=== PATIENT | female | born 1950 | race Caucasian/White ===

== ENCOUNTER 2020-12-30 07:37 | Outpatient (REF) | payer MEDICARE, OTHER, SELFPAY ==
[2020-12-30 10:15] LABS: MANUAL DIFF FLAG NO
[2020-12-30 10:22] LABS: Basophils Percent Auto 0.5 % (0-2); Eosinophils Absolute Auto 0.2 X10*3/uL (0.0-0.4); Eosinophils Percent Auto 3.4 % (0-4); Hematocrit 40.1 % (37-47); Hemoglobin 13.6 g/dl (12.0-16.0); Imm Gran Abs Auto 0.01 X10*3/uL (0.00-0.03); Imm Gran Pct Auto 0.2 % (0.0-0.4); Lymphocytes Absolute Auto 1.8 X10*3/uL (1.2-4.9); Lymphocytes Percent Auto 30.3 % (20-40); Mean Corpuscular HGB Conc 33.9 g/dl (31.0-35.0); Mean Corpuscular Hemoglobin 30.3 pg (27.0-33.0); Mean Corpuscular Volume 89.3 fL (80-98); Mean Platelet Volume 10.4 fL (9.4-12.3); Monocytes Absolute Auto 0.6 X10*3/uL (0.1-1.2); Monocytes Percent Auto 9.3 % (2-11); Neutrophils Absolute Auto 3.3 X10*3/uL (2.0-8.3); Neutrophils Percent Auto 56.3 % (45-73); Platelet Count 338 X10*3/uL (160-400); Red Blood Count 4.49 X10*6/uL (4.20-5.50); Red Cell Distribution Width 12.5 % (11.0-16.0); White Blood Count 5.9 X10*3/uL (4.8-10.8)
[2020-12-30 10:32] LABS: Alanine Aminotransferase 16 U/L (0-31); Albumin Level 4.1 g/dL (3.5-5.0); Alkaline Phosphatase 57 U/L (39-117); Anion Gap 14 (12-20); Aspartate Amino Transferase 16 U/L (5-31); Bilirubin Total 0.7 mg/dL (0.0-1.0); Blood Urea Nitrogen 10 mg/dL (9-16); Calcium 9.3 mg/dL (8.4-10.2); Carbon Dioxide 23 mmol/L (22-29); Chloride 106 mmol/L (96-108); Cholesterol 210 mg/dL; Estimated Glomerular Filt Rate > 60; Glucose Fasting 97 mg/dL (60-99); HDL Cholesterol 62 mg/dL; LDL Cholesterol Calculated 109 mg/dl; Potassium 4.2 mmol/L (3.3-5.1); Sodium 139 mmol/L (135-145); Total Protein 6.9 g/dL (6.5-8.0); Triglycerides 195 mg/dL
== END 2020-12-30 07:38 | disposition home or self-care (01) ==
LOC: HO.10HDL 07:37
PROVIDERS: PCP Internal Medicine; Visit Provider Internal Medicine
DX: E78.00 Pure hypercholesterolemia, unspecified (principal); L40.9 Psoriasis, unspecified; M85.80 Other specified disorders of bone density and structure, unspecified site; K21.9 Gastro-esophageal reflux disease without esophagitis
CPT/HCPCS: 36415; 80053; 80061; 82306; 85025

== ENCOUNTER 2021-02-17 08:00 | Outpatient (REF) | payer MEDICARE, OTHER, SELFPAY ==
--- NOTE | ~2021-02-17 | MM_ITS ---
EXAMINATION: MM SCREENING DIGITAL BREAST TOMOSYNTHESIS, BILATERAL CLINICAL INFORMATION: Screening. Asymptomatic. The lifetime risk of breast cancer based on the Tyrer-Cuzick Model is 3.4%. COMPARISON: Mammography: December 10, 2019 and studies dating back to September 26, 2014 TECHNIQUE: Digital breast tomosynthesis is performed in both the craniocaudal and mediolateral oblique views along with computer-aided detection (CAD). Synthesized 2D images are generated from the tomosynthesis. FINDINGS: The breasts are heterogeneously dense, which may obscure small masses (ACR BI-RADS breast composition Category c). There are no significant masses, abnormal calcifications, or other abnormalities. There is a stable region of multiple small rounded densities about the superior aspect of the left breast. MM/MM tomosynthesis screening BI IMPRESSION: There are no significant changes from prior study. ASSESSMENT: BI-RADS 1: Negative RECOMMENDATION: Routine annual mammography screening. This patient's information was entered into a reminder system with a target due date for their next mammogram.
== END 2021-02-17 08:01 | disposition home or self-care (01) ==
LOC: HO.MAMMO 08:00
PROVIDERS: PCP Internal Medicine; Visit Provider Internal Medicine
DX: Z12.31 Encounter for screening mammogram for malignant neoplasm of breast (principal)
CPT/HCPCS: 77063; 77067

== ENCOUNTER 2021-06-01 06:31 | Day surgery (SDC) | payer MEDICARE, OTHER, SELFPAY ==
[2021-05-26 10:24] VITALS: BMI 22.4
--- NOTE | 2021-05-29 09:51 | HO.ANESPROP2 ---
Documented by User: Monserrat Regalado NP 05/29/21 09:52 HPI - Anesthesia Eval Consult details Narrative: 70yo F for Colonoscopy [facility] Past Medical History Medical History (Updated 05/26/21 @ 10:24 by Sherry Morgan RN) Arthritis COVID-19 vaccine series completed Elevated cholesterol Family history of anesthesia complication Postoperative nausea Surgical History Surgical History (Updated 05/26/21 @ 10:23 by Sherry Morgan RN) H/O colonoscopy History of Hx of appendectomy Social History Social History Are you a primary career services representative to a significant other at home: No Do you presently have visiting nurse or other home services: No Patient Tobacco Use Status: Former Tobacco user Quit Date: 2007 Tobacco use type: Cigarette Use of substances other than those prescribed or required for medical reasons: Yes Substance Use Type Other:: edible marijuana for sleep-advised to hold pre-op Have you been hit, kicked, punched, or otherwise hurt by someone within the past year? If so, by whom?: No Are you DNR?: No Advance Directives: No Advance Directives Information Provided: Yes Advance Directives on File: No Recently lost weight without trying: No Eating poorly because of decreased appetite: No Nutrition Risks: No Nutritional Risk Poor oral hygiene: No Meds Allergies Allergy/AdvReac Type Severity Reaction Status Date / Time No Known Allergies Allergy Unverified 01/24/20 15:21 Home Medications Medication Instructions Recorded Confirmed Last Taken Type atorvastatin 20 mg tablet 1 tab PO DAILY 05/26/21 05/26/21 Unknown History Exam Exam Date and Time: May 29, 2021 0951 Height,Weight and Vital Signs: Height 5 ft Weight 52.163 kg Assessment and Plan Assessment Anesthesia Assessment: Chart Reviewed Documented by User: Jerel Saenz MD 06/01/21 07:14 [facility] Past Medical History Medical History (Updated 05/26/21 @ 10:24 by Sherry Morgan RN) Arthritis COVID-19 vaccine series completed Elevated cholesterol Family history of anesthesia complication Postoperative nausea Family History Family history of problems with anesthesia: No Surgical History Surgical History (Updated 05/26/21 @ 10:23 by Sherry Morgan RN) H/O colonoscopy History of Hx of appendectomy History of Problems with Anesthesia: No Social History Social History Are you a primary career services representative to a significant other at home: No Do you presently have visiting nurse or other home services: No Patient Tobacco Use Status: Former Tobacco user Quit Date: 2007 Tobacco use type: Cigarette Use of substances other than those prescribed or required for medical reasons: Yes Substance Use Type Other:: edible marijuana for sleep-advised to hold pre-op Have you been hit, kicked, punched, or otherwise hurt by someone within the past year? If so, by whom?: No Are you DNR?: No Advance Directives: No Advance Directives Information Provided: Yes Advance Directives on File: No Recently lost weight without trying: No Eating poorly because of decreased appetite: No Nutrition Risks: No Nutritional Risk Poor oral hygiene: No Meds Allergies Allergy/AdvReac Type Severity Reaction Status Date / Time No Known Allergies Allergy Unverified 01/24/20 15:21 Home Medications Medication Instructions Recorded Confirmed Last Taken Type atorvastatin 20 mg tablet 1 tab PO DAILY 05/26/21 05/26/21 Unknown History Assessment and Plan Assessment Anesthesia Assessment: Anesthesia Plan Discussed and Chart Reviewed Final Anesthetic Review Family History of Problems with Anesthesia: No History of Problems with Anesthesia: No NPO: Yes ASA Class: II Final Preanesthetic Review: No Changes in Pt Med Stat, Meds/Allgs Chart Reviewed and Consent Obtained/Reviewed Patient Risk: Low Procedure Risk: Low Anesthetic Plan Anesthetic Plan: MAC: Disposition: Standard PACU
[2021-06-01 07:21] VITALS: BP 135/74; PULSE 88; RESP 16; TEMP 36.4; O2SAT 97
[2021-06-01] MEDS: Lactated Ringers 1,000 ML 100 ML IVCONT (07:25)
[2021-06-01 08:24] VITALS: BP 107/60; PULSE 87; RESP 14; TEMP 36.1; O2SAT 98
--- NOTE | 2021-06-01 08:25 | P.BOP_ITS ---
Brief Operative Note Date of Service: 06/01/21 Pre-op diagnosis: Screening Post-op diagnosis: other (Diverticulosis) Procedure: Colonoscopy to the cecum and TI Surgeon: Star Mcginnis Anesthesia: MAC Was an Automation Controls Expert used for this Procedure?: No Estimated blood loss (mL): 0 Pathology: none sent Condition: stable Disposition: PACU
--- NOTE | 2021-06-01 08:35 | PC.NURSE ---
dr gould at bedside speaking to patient concerningcolonscopy results
[2021-06-01 08:39] VITALS: BP 118/72; PULSE 87; RESP 18; TEMP 36.6; O2SAT 98
--- NOTE | 2021-06-01 09:05 | OP_ITS ---
SURGEON: Star Mcignnis MD INDICATIONS: The patient presents for evaluation of colorectal cancer screening. Full consent has been obtained from her for this, including risks of bleeding and perforation. PREOPERATIVE DIAGNOSIS: Colorectal cancer screening. POSTOPERATIVE DIAGNOSIS: PROCEDURE PERFORMED: ESTIMATED BLOOD LOSS: COMPLICATIONS: ANESTHESIA: Monitored anesthesia care. ASSISTANTS: SPECIMENS: PROCEDURE: Colonoscopy to cecum and terminal ileum. POSTOPERATIVE DIAGNOSES: Colorectal cancer screening, mild diverticulosis, internal and external hemorrhoids. DESCRIPTION OF PROCEDURE: The patient was placed in the left lateral decubitus position. The digital rectal exam revealed some small external hemorrhoidal tissue. The Olympus video pediatric colonoscope was entered into the rectum and advanced to the cecum with the assistance of abdominal wall pressure. Once in the cecum. I did identify normal-appearing cecal pouch with appendiceal orifice and a normal-appearing ileocecal valve. The terminal ileum was cannulated and appeared normal. The scope was slowly withdrawn assessing all mucosal surfaces carefully. Preparation was excellent. I did not visualize any sign of polyps, colitis, or angiodysplasia. There was a mild amount of sigmoid diverticulosis. In the rectum, scope was retroflexed visualizing small internal hemorrhoids, but no other pathology. The rectal mucosa appeared normal. The scope was straightened and withdrawn from the patient. She tolerated the procedure well and was returned to recovery area in stable condition. IMPRESSION: 1. Small internal and external hemorrhoids. 2. Mild sigmoid diverticulosis. PLAN: Given today's negative exam, negative colonoscopy 10 years ago, and no family history of colorectal cancer; I do not think she will need any further screening colonoscopies given her age of 70 since she would be 80 years old 10 years from now when her next screening colonoscopy would theoretically be due. She will otherwise see me on a p.r.n. basis. MD DORINA Humphries/DIANE / [id number] MTDD
== END 2021-06-01 09:01 | disposition home or self-care (01) ==
PROVIDERS: PCP Internal Medicine; Visit Provider Internal Medicine
PROC: 0DJD8ZZ Inspection of Lower Intestinal Tract, Via Natural or Artificial Opening Endoscopic (ICD-10-PCS; CPT 45378; principal; 2021-06-01 07:30)
DX: Z12.11 Encounter for screening for malignant neoplasm of colon (principal); K57.30 Diverticulosis of large intestine without perforation or abscess without bleeding; K64.8 Other hemorrhoids; K64.4 Residual hemorrhoidal skin tags; E78.5 Hyperlipidemia, unspecified; Z79.899 Other long term (current) drug therapy; Z87.891 Personal history of nicotine dependence
CPT/HCPCS: G0121

== ENCOUNTER 2021-12-25 07:23 | Outpatient (REF) | payer MEDICARE, OTHER, SELFPAY ==
[2021-12-25 10:28] LABS: MANUAL DIFF FLAG NO
[2021-12-25 10:31] LABS: Basophils Percent Auto 0.8 % (0-2); Eosinophils Absolute Auto 0.1 X10*3/uL (0.0-0.4); Eosinophils Percent Auto 2.5 % (0-4); Hematocrit 39.6 % (37.0-47.0); Hemoglobin 13.4 g/dl (12.0-16.0); Imm Gran Abs Auto 0.01 X10*3/uL (0.00-0.03); Imm Gran Pct Auto 0.2 % (0.0-0.4); Lymphocytes Percent Auto 37.7 % (20-40); Mean Corpuscular HGB Conc 33.8 g/dl (31.0-35.0); Mean Corpuscular Hemoglobin 29.9 pg (27.0-33.0); Mean Corpuscular Volume 88.4 fL (80.0-98.0); Mean Platelet Volume 10.3 fL (9.4-12.3); Monocytes Absolute Auto 0.6 X10*3/uL (0.1-1.2); Monocytes Percent Auto 11.3 % (2-11); Neutrophils Absolute Auto 2.5 x10*3/uL (2.0-8.3); Neutrophils Percent Auto 47.5 % (45-73); Platelet Count 341 X10*3/uL (160-400); Red Blood Count 4.48 X10*6/uL (4.20-5.50); Red Cell Distribution Width 12.6 % (11.0-16.0); White Blood Count 5.2 X10*3/uL (4.8-10.8)
[2021-12-25 10:51] LABS: Alanine Aminotransferase 11 U/L (0-31); Albumin Level 4.1 g/dL (3.5-5.0); Alkaline Phosphatase 60 U/L (39-117); Anion Gap 14 (12-20); Aspartate Amino Transferase 15 U/L (5-31); Bilirubin Total 0.6 mg/dL (0.0-1.0); Blood Urea Nitrogen 15 mg/dL (9-16); Carbon Dioxide 24 mmol/L (22-29); Chloride 106 mmol/L (96-108); Cholesterol 200 mg/dL; Estimated Glomerular Filt Rate > 60; Glucose Fasting 100 mg/dL (60-99); HDL Cholesterol 62 mg/dL; LDL Cholesterol Calculated 116 mg/dl; Potassium 4.2 mmol/L (3.3-5.1); Sodium 140 mmol/L (135-145); Total Protein 6.8 g/dL (6.5-8.0); Triglycerides 111 mg/dL
== END 2021-12-25 07:24 | disposition home or self-care (01) ==
LOC: HO.10HDL 07:23
PROVIDERS: Visit Provider Internal Medicine
DX: E78.00 Pure hypercholesterolemia, unspecified (principal); M81.0 Age-related osteoporosis without current pathological fracture
CPT/HCPCS: 36415; 80053; 80061; 85025

== ENCOUNTER 2021-12-28 08:06 | Day surgery (SDC) | payer MEDICARE, OTHER, SELFPAY ==
[2021-12-22 13:21] VITALS: BMI 22.6
--- NOTE | 2021-12-25 08:35 | MHC.SHP ---
Pre-Procedural Eval Section A Date of Service: 12/25/21 The patient is an INPATIENT: No Changes since office visit: No Cold of Flu in the past 2 weeks, No New Medical Problems, No Changes in Medication and No Patient answered all questions The History & Physical has been completed within 30 days and I have reviewed it.: Yes Section B Chief Complaint: cataract Allergies: Allergies Allergy/AdvReac Type Severity Reaction Status Date / Time No Known Allergies Allergy Unverified 01/24/20 15:21 Plan Diagnosis/Plan: Unchanged I have reviewed the history and physical and performed a pertinent physical examination on my patient. No changes have occurred unless specified.
--- NOTE | 2021-12-25 11:50 | HO.ANESPROP2 ---
Documented by User: Monserrat Regalado NP 12/25/21 11:51 HPI - Anesthesia Eval Consult details Narrative: 71yo F for Left Cataract Extraction IOL Insertion PCP cleared No previous cataract on record [facility] Past Medical History Medical History Arthritis COVID-19 vaccine series completed Elevated cholesterol Family history of anesthesia complication Postoperative nausea Family History Family history of problems with anesthesia: No Surgical History Surgical History H/O colonoscopy History of Hx of appendectomy History of Problems with Anesthesia: No Social History Social History Are you a primary childcare attendant to a significant other at home: No Do you presently have visiting nurse or other home services: No Patient Tobacco Use Status: Former Tobacco user Quit Date: 2007 Tobacco use type: Cigarette Use of substances other than those prescribed or required for medical reasons: Yes Substance Use Type Other:: occasional edibles/gummies Have you been hit, kicked, punched, or otherwise hurt by someone within the past year? If so, by whom?: No Are you DNR?: No Advance Directives: No Advance Directives Information Provided: Yes (brochure mailed) Advance Directives on File: No Recently lost weight without trying: No Eating poorly because of decreased appetite: No Nutrition Risks: No Nutritional Risk Poor oral hygiene: No (upper partial) Meds Allergies Allergy/AdvReac Type Severity Reaction Status Date / Time No Known Allergies Allergy Unverified 01/24/20 15:21 Home Medications Medication Instructions Recorded Confirmed Last Taken Type atorvastatin 20 mg tablet 1 tab PO DAILY 05/26/21 12/22/21 Unknown History Exam Exam Date and Time: December 25, 2021 1150 Height,Weight and Vital Signs: Height 5 ft Weight 52.617 kg Assessment and Plan Assessment Anesthesia Assessment: Chart Reviewed Final Anesthetic Review Family History of Problems with Anesthesia: No History of Problems with Anesthesia: No Documented by User: Lisa Karimi MD 12/28/21 09:11 [facility] Past Medical History Medical History Arthritis COVID-19 vaccine series completed Elevated cholesterol Family history of anesthesia complication Postoperative nausea Surgical History Surgical History H/O colonoscopy History of Hx of appendectomy Social History Social History Are you a primary childcare attendant to a significant other at home: No Do you presently have visiting nurse or other home services: No Patient Tobacco Use Status: Former Tobacco user Quit Date: 2007 Tobacco use type: Cigarette Use of substances other than those prescribed or required for medical reasons: Yes Substance Use Type Other:: occasional edibles/gummies Have you been hit, kicked, punched, or otherwise hurt by someone within the past year? If so, by whom?: No Are you DNR?: No Advance Directives: No Advance Directives Information Provided: Yes (brochure mailed) Advance Directives on File: No Recently lost weight without trying: No Eating poorly because of decreased appetite: No Nutrition Risks: No Nutritional Risk Poor oral hygiene: No (upper partial) Meds Allergies Allergy/AdvReac Type Severity Reaction Status Date / Time No Known Allergies Allergy Unverified 01/24/20 15:21 Home Medications Medication Instructions Recorded Confirmed Last Taken Type atorvastatin 20 mg tablet 1 tab PO DAILY 05/26/21 12/22/21 Unknown History Exam Airway Mallampati Class: II TM Dist: >3cm Neck ROM: Full Partial: Upper Loose/Missing/Broken Teeth: Yes and Upper Heart: RRR Lungs: CTA Assessment and Plan Assessment Anesthesia Assessment: Anesthesia Plan Discussed Final Anesthetic Review NPO: Yes ASA Class: II Final Preanesthetic Review: Meds/Allgs Chart Reviewed, Consent Obtained/Reviewed and Anes Risks/Benef Reviewed Patient Risk: Low Procedure Risk: Low Anesthetic Plan Anesthetic Plan: MAC: Disposition: Standard PACU
--- NOTE | 2021-12-25 12:03 | HP_ITS ---
DATE OF SERVICE: 12/28/2021 The patient is a 71-year-old female seen in the office for preop evaluation on December 21 prior to cataract surgery scheduled with Dr. Carlos. The patient feels well. PRESENT MEDICATIONS: Atorvastatin 20 mg a day, [id number] melatonin as needed, calcium and vitamin D daily. REVIEW OF SYSTEMS: No fevers, chills, or sweats. No weight change. No headaches or dizziness. No chest pains or palpitations. No peripheral edema. No shortness of breath. No abdominal pain. Occasional heartburn. No dysuria. Some arthritis in the hands. Sleep and appetite are normal. Some seasonal allergies. No skin complaints. ALLERGIES: NO REPORTED ALLERGIES TO MEDICINES. PAST MEDICAL HISTORY: Significant for elevated cholesterol, hay fever, acid reflux, and psoriasis. FAMILY HISTORY: Mother at 90. Father at 81. One brother from ALS. SOCIAL HISTORY: She is , retired, has 2 children. PHYSICAL EXAMINATION: GENERAL: She is awake and alert, in no distress. VITAL SIGNS: Temperature is 98.6, pulse 72, respirations 12, pressure 124/64, oxygen saturation 99% on room air. She is 4 feet 11 inches and weighs 116 pounds. HEENT: Clear. Some wax in the right canal. HEART: Sounds S1 and S2. Regular rate. LUNGS: Clear. ABDOMEN: Soft, nontender. Positive bowel sounds. No HSM. EXTREMITIES: No clubbing, cyanosis, or edema. 1+ pulses. NEUROLOGIC: Nonfocal. Cranial nerves 2 through 12 are intact. Immunizations are up-to-date. She is medically stable for the proposed procedure. I will be available if there are any questions. MD JULIUS Luna/MODL / [id number]
[2021-12-28 08:40] VITALS: BP 139/84; PULSE 66; RESP 18; TEMP 36.9; O2SAT 96
[2021-12-28 08:42] VITALS: BMI 31.2
[2021-12-28] MEDS: Cyclopentolate 1 % Ophth Sol 2 ML DRPBTL 1 DROP EYE-LEFT ×3 (08:59→09:12)
[2021-12-28] MEDS: Lactated Ringers 500 ML 50 ML IV (08:59)
[2021-12-28] MEDS: Tetracaine HCl/PF 0.5% Oph Sol 4 ML DROPS 1 DROP EYE-LEFT (08:59)
[2021-12-28] MEDS: Phenylephrine HCL 2.5% Oph SoL 2 ML BOTTLE 1 DROP EYE-LEFT ×3 (09:00→09:13)
[2021-12-28] MEDS: Tropicamide 1 % Ophth Sol 3 ML BTL 1 DROP EYE-LEFT ×3 (09:11→09:13)
--- NOTE | 2021-12-28 09:45 | HO.PNOPHT ---
Ophthalmology Procedure Procedure Date of Service: 12/28/21 Ophthalmology Viscoelastic: Healmilly Cohent Dual Pack Pro Ophthalmology Lenses: TECNIS [id number] (22.5) Procedure Notes: PREOPERATIVE DIAGNOSIS: Decreased visual acuity left eye secondary to cataract POSTOPERATIVE DIAGNOSIS: Same PROCEDURE: Left cataract extraction with intraocular lens insertion SURGEON: Fritz Carlos M.D. ANESTHESIA: Topical/MAC ESTIMATED BLOOD LOSS: None COMPLICATIONS: None After obtaining informed consent, the patient was brought to the operation room suite and placed in the supine position. After adequate sedation per anesthesia, topical drops of Tetracaine were given to the left eye. The eye was then prepped and draped in the usual sterile fashion. The operating room microscope was then positioned over the operative eye and a lid speculum placed. A paracentesis was created. Viscoelastic was then instilled into the anterior chamber. A three plane incision was then created temporally, utilizing a 2.85 mm keratome. Capsulotomy forceps were then utilized to create a circular tear capsulotomy. Hydrodissection and hydrodelineation were carried out until adequate mobilization of the nucleus occurred. Phacoemulsification was then utilized to remove the dense central nucleus followed by removal of the cortical material utilizing the automated aspiration irrigation unit. Viscoat elastic was instilled into the posterior capsular bag followed by placement of a posterior chamber intraocular lens without difficulty. The residual Viscoat elastic was then removed utilizing the automated IA machine. The wound was check and found to be watertight. The patient tolerated the procedure well and the lid speculum was removed. Intracameral injection of Vigamox 0.1 mL followed by a subtenon injection of Kenalog-40 0.2 mL were administered. The patient will be seen in the a.m.
[2021-12-28 10:07] VITALS: BP 142/73; PULSE 72; RESP 16; TEMP 36.6; O2SAT 97
== END 2021-12-28 10:16 | disposition home or self-care (01) ==
PROVIDERS: PCP Internal Medicine; Visit Provider Ophthalmology
PROC: (CPT 66985; principal; 2021-12-28 10:10)
DX: H25.12 Age-related nuclear cataract, left eye (principal); H52.4 Presbyopia; Z83.511 Family history of glaucoma; H35.09 Other intraretinal microvascular abnormalities; K21.9 Gastro-esophageal reflux disease without esophagitis; L40.9 Psoriasis, unspecified; J30.1 Allergic rhinitis due to pollen; Z79.899 Other long term (current) drug therapy; Z87.891 Personal history of nicotine dependence
CPT/HCPCS: 66984; J2250; J3300; V2632

== ENCOUNTER 2022-01-18 08:09 | Day surgery (SDC) | payer MEDICARE, OTHER, SELFPAY ==
[2021-12-22 13:24] VITALS: BMI 22.6
--- NOTE | 2022-01-15 12:58 | MHC.SHP ---
Pre-Procedural Eval Section A Date of Service: 01/15/22 The patient is an INPATIENT: No Changes since office visit: No Cold of Flu in the past 2 weeks, No New Medical Problems, No Changes in Medication and No Patient answered all questions The History & Physical has been completed within 30 days and I have reviewed it.: Yes Section B Chief Complaint: cataract Allergies: Allergies Allergy/AdvReac Type Severity Reaction Status Date / Time No Known Allergies Allergy Unverified 01/24/20 15:21 Plan Diagnosis/Plan: Unchanged I have reviewed the history and physical and performed a pertinent physical examination on my patient. No changes have occurred unless specified.
[2022-01-18 09:26] VITALS: BP 150/79; PULSE 62; RESP 16; TEMP 36.8; O2SAT 96
[2022-01-18] MEDS: Tetracaine HCl/PF 0.5% Oph Sol 4 ML DROPS 1 DROP EYE-RIGHT (09:28)
[2022-01-18] MEDS: Cyclopentolate 1 % Ophth Sol 2 ML DRPBTL 1 DROP EYE-RIGHT ×3 (09:34→09:49)
[2022-01-18] MEDS: Lactated Ringers 500 ML 50 ML IVCONT (09:34)
[2022-01-18] MEDS: Tropicamide 1 % Ophth Sol 3 ML BTL 1 DROP EYE-RIGHT ×3 (09:36→09:50)
[2022-01-18] MEDS: Phenylephrine HCL 2.5% Oph SoL 2 ML BOTTLE 1 DROP EYE-RIGHT ×3 (09:41→09:51)
--- NOTE | 2022-01-18 09:47 | HO.ANESPROP2 ---
HPI - Anesthesia Eval Consult details Narrative: right eye cataract [facility] Past Medical History Medical History Arthritis COVID-19 vaccine series completed Elevated cholesterol Family history of anesthesia complication Postoperative nausea Family History Family history of problems with anesthesia: No Surgical History Surgical History H/O colonoscopy History of Hx of appendectomy History of Problems with Anesthesia: No Social History Social History Are you a primary career and guidance counselor to a significant other at home: No Do you presently have visiting nurse or other home services: No Patient Tobacco Use Status: Former Tobacco user Quit Date: 2007 Tobacco use type: Cigarette Use of substances other than those prescribed or required for medical reasons: Yes Substance Use Type Other:: occasional edibles/gummies Have you been hit, kicked, punched, or otherwise hurt by someone within the past year? If so, by whom?: No Are you DNR?: No Advance Directives: No Advance Directives Information Provided: Yes (brochure mailed) Advance Directives on File: No Recently lost weight without trying: No Eating poorly because of decreased appetite: No Nutrition Risks: No Nutritional Risk Poor oral hygiene: No (upper partial) Meds Allergies Allergy/AdvReac Type Severity Reaction Status Date / Time No Known Allergies Allergy Unverified 01/24/20 15:21 Active Medications: Current Medications Lactated Ringer's (Lr) 500 mls @ 50 mls/hr IVCONT .Q10H RISA Last Admin: 01/18/22 09:34 Dose: 50 mls/hr Povidone Iodine (Povidone Iodine 5 % Ophth Soln 30 Ml Bottle) 1 appl EYE-RIGHT PREOP PRN PRN Reason: Pre-Op Surgical Implant Prophy Home Medications Medication Instructions Recorded Confirmed Last Taken Type atorvastatin 20 mg tablet 1 tab PO DAILY 05/26/21 12/22/21 Unknown History Exam Exam Date and Time: January 18, 2022 0947 Height,Weight and Vital Signs: Height 5 ft Weight 52.617 kg Last Vital Signs Temp 98.2 F 01/18/22 09:26 Pulse 62 01/18/22 09:26 Resp 16 01/18/22 09:26 BP 150/79 H 01/18/22 09:26 Pulse Ox 96 01/18/22 09:26 O2 Del Method 01/18/22 09:26 Airway Mallampati Class: II TM Dist: >3cm Neck ROM: Full Loose/Missing/Broken Teeth: Yes (upper back teeth missing bilaterally) Heart: [id number] Lungs: cta b/l Assessment and Plan Assessment Anesthesia Assessment: Anesthesia Plan Discussed and Chart Reviewed Final Anesthetic Review Family History of Problems with Anesthesia: No History of Problems with Anesthesia: No NPO: Yes ASA Class: II Final Preanesthetic Review: No Changes in Pt Med Stat, Meds/Allgs Chart Reviewed, Consent Obtained/Reviewed and Anes Risks/Benef Reviewed Patient Risk: Low Procedure Risk: Low Assessment/Block/Sedation in SS: Assess/Block/Sedation-SS Anesthetic Plan Anesthetic Plan: MAC: and Agree w/ Assess. and Plan Disposition: Standard PACU
--- NOTE | 2022-01-18 11:01 | HO.PNOPHT ---
Ophthalmology Procedure Procedure Date of Service: 01/18/22 Ophthalmology Viscoelastic: Taco Cohent Dual Pack Pro Ophthalmology Lenses: TECJANETH [id number] (23) Procedure Notes: PREOPERATIVE DIAGNOSIS: Decreased visual acuity right eye secondary to cataract POSTOPERATIVE DIAGNOSIS: Same PROCEDURE: Right cataract extraction with intraocular lens insertion SURGEON: Fritz Carlos M.D. ANESTHESIA: Topical/MAC ESTIMATED BLOOD LOSS: None COMPLICATIONS: None After obtaining informed consent, the patient was brought to the operating room suite and placed in the supine position. After adequate sedation per anesthesia, topical drops of Tetracaine were given to the right eye. The eye was then prepped and draped in the usual sterile fashion. The operating room microscope was then positioned over the operative eye and a lid speculum placed. A paracentesis was created. Viscoelastic was then instilled into the anterior chamber. A three plane incision was then created temporally, utilizing a 2.85 mm keratome. Capsulotomy forceps were then utilized to create a circular tear capsulotomy. Hydrodissection and hydrodelineation were carried out until adequate mobilization of the nucleus occurred. Phacoemulsification was then utilized to remove the dense central nucleus followed by removal of the cortical material utilizing the automated aspiration irrigation unit. Viscoelastic was instilled into the posterior capsular bag followed by placement of a posterior chamber intraocular lens without difficulty. The residual Viscoelastic was then removed utilizing the automated IA machine. The wound was checked and found to be watertight. The patient tolerated the procedure well and the lid speculum was removed. Intracameral injection of Vigamox 0.1 mL followed by a subtenon injection of Kenalog-40 0.2 mL were administered. The patient will be seen in the a.m.
[2022-01-18 11:24] VITALS: BP 135/76; PULSE 65; RESP 16; TEMP 36.1; O2SAT 97
== END 2022-01-18 11:39 | disposition home or self-care (01) ==
PROVIDERS: PCP Internal Medicine; Visit Provider Ophthalmology
PROC: (CPT 66985; principal; 2022-01-18 10:30)
DX: H25.11 Age-related nuclear cataract, right eye (principal)
CPT/HCPCS: 66984; J2250; J3300; V2632

== ENCOUNTER 2022-02-22 07:44 | Outpatient (REF) | payer MEDICARE, OTHER, SELFPAY ==
--- NOTE | ~2022-02-22 | MM_ITS ---
EXAMINATION: MM SCREENING DIGITAL BREAST TOMOSYNTHESIS, BILATERAL CLINICAL INFORMATION: Screening. Asymptomatic. The lifetime risk of breast cancer based on the Tyrer-Cuzick Model is 3%. COMPARISON: Mammography: 02/17/2021, 12/10/2019, 11/14/2018 TECHNIQUE: Digital breast tomosynthesis is performed in both the craniocaudal and mediolateral oblique views along with computer-aided detection (CAD). Synthesized 2D images are generated from the tomosynthesis. FINDINGS: The breasts are heterogeneously dense, which may obscure small masses (ACR BI-RADS breast composition Category c). There are no significant masses, abnormal calcifications, or other abnormalities. No architectural abnormality or developing density. There is chronic bilateral nipple retraction. The axilla are unremarkable. No significant changes. MM/MM tomosynthesis screening BI IMPRESSION: No significant changes from prior studies. ASSESSMENT: BI-RADS 2: Benign RECOMMENDATION: Routine annual mammography screening. This patient's information was entered into a reminder system with a target due date for their next mammogram.
== END 2022-02-22 07:45 | disposition home or self-care (01) ==
LOC: HO.MAMMO 07:44
PROVIDERS: PCP Internal Medicine; Visit Provider Internal Medicine
DX: Z12.31 Encounter for screening mammogram for malignant neoplasm of breast (principal)
CPT/HCPCS: 77063; 77067

== ENCOUNTER 2023-02-15 06:57 | Outpatient (REF) | payer MEDICARE, OTHER, SELFPAY | END 2023-02-15 06:58 | disposition home or self-care (01) | LOC: HO.LAB 06:57 | PROVIDERS: PCP Internal Medicine; Visit Provider Internal Medicine | DX: E78.00 Pure hypercholesterolemia, unspecified (principal); K21.9 Gastro-esophageal reflux disease without esophagitis; M81.0 Age-related osteoporosis without current pathological fracture; L40.9 Psoriasis, unspecified | CPT/HCPCS: 36415; 80053; 80061; 82306; 85025 ==

== ENCOUNTER 2023-02-28 07:41 | Outpatient (REF) | payer MEDICARE, OTHER, SELFPAY ==
--- NOTE | ~2023-02-28 | MM_ITS ---
EXAMINATION: MM SCREENING DIGITAL BREAST TOMOSYNTHESIS, BILATERAL CLINICAL INFORMATION: Screening. Asymptomatic. COMPARISON: Mammography: This study is compared with prior exams dating back to TECHNIQUE: Digital breast tomosynthesis is performed in both the craniocaudal and mediolateral oblique views along with computer-aided detection (CAD). Synthesized 2D images are generated from the tomosynthesis. FINDINGS: The breasts are heterogeneously dense, which may obscure small masses (ACR BI-RADS breast composition Category c). There are no significant masses, abnormal calcifications, or other abnormalities. Few, bilateral benign calcifications are present. MM/MM tomosynthesis screening BI IMPRESSION: No mammographic evidence of malignancy. ASSESSMENT: BI-RADS BI-RADS 1 - Negative RECOMMENDATION: Routine annual mammography screening. 1 year F/U This examination should not preclude the clinical evaluation of a suspicious palpable abnormality. This patient's information was entered into a reminder system with a target due date for their next mammogram.
== END 2023-02-28 07:42 | disposition home or self-care (01) ==
LOC: HO.MAMMO 07:41
PROVIDERS: PCP Internal Medicine; Visit Provider Internal Medicine
DX: Z12.31 Encounter for screening mammogram for malignant neoplasm of breast (principal)
CPT/HCPCS: 77063; 77067

== ENCOUNTER → 2023-02-28 08:00 | Outpatient (BNV) | payer MEDICARE, OTHER, SELFPAY | PROVIDERS: PCP Internal Medicine; Visit Provider Radiology Diagnostic Radiology | DX: Z12.31 Encounter for screening mammogram for malignant neoplasm of breast (principal) | CPT/HCPCS: 77063; 77067 ==

== ENCOUNTER 2023-08-25 07:14 | Outpatient (REF) | payer MEDICARE, SELFPAY ==
[2023-08-25 08:11] LABS: Anion Gap 11 (12-20); Blood Urea Nitrogen 14 mg/dL (9-16); Calcium 9.3 mg/dL (8.4-10.2); Carbon Dioxide 28 mmol/L (22-29); Chloride 105 mmol/L (96-108); Estimated Glomerular Filt Rate > 60; Glucose Random 106 mg/dL (60-115); Sodium 140 mmol/L (135-145)
== END 2023-08-25 07:15 | disposition home or self-care (01) ==
LOC: HO.LAB 07:14
PROVIDERS: PCP Internal Medicine; Visit Provider Internal Medicine
DX: L40.9 Psoriasis, unspecified (principal)
CPT/HCPCS: 36415; 80048

== ENCOUNTER 2024-02-13 07:08 | Outpatient (REF) | payer MEDICARE, SELFPAY ==
[2024-02-13 07:19] LABS: MANUAL DIFF FLAG NO
[2024-02-13 07:51] LABS: Basophils Percent Auto 0.7 % (0-2); Eosinophils Absolute Auto 0.2 X10*3/uL (0.0-0.4); Eosinophils Percent Auto 3.7 % (0-4); Hematocrit 39.7 % (37.0-47.0); Hemoglobin 13.7 g/dl (12.0-16.0); Imm Gran Abs Auto 0.01 X10*3/uL (0.00-0.03); Imm Gran Pct Auto 0.2 % (0.0-0.4); Lymphocytes Absolute Auto 2.1 X10*3/uL (1.2-4.9); Lymphocytes Percent Auto 35.8 % (20-40); Mean Corpuscular HGB Conc 34.5 g/dl (31.0-35.0); Mean Corpuscular Hemoglobin 30.6 pg (27.0-33.0); Mean Corpuscular Volume 88.8 fL (80.0-98.0); Mean Platelet Volume 9.8 fL (9.4-12.3); Monocytes Absolute Auto 0.6 X10*3/uL (0.1-1.2); Neutrophils Absolute Auto 2.8 x10*3/uL (2.0-8.3); Neutrophils Percent Auto 48.6 % (45-73); Platelet Count 335 X10*3/uL (160-400); Red Blood Count 4.47 X10*6/uL (4.20-5.50); Red Cell Distribution Width 12.5 % (11.0-16.0); White Blood Count 5.8 X10*3/uL (4.8-10.8)
[2024-02-13 08:31] LABS: Alanine Aminotransferase 16 U/L (0-31); Albumin Level 4.2 g/dL (3.5-5.0); Alkaline Phosphatase 63 U/L (39-117); Anion Gap 10 (12-20); Aspartate Amino Transferase 16 U/L (5-31); Bilirubin Total 0.7 mg/dL (0.0-1.0); Blood Urea Nitrogen 12 mg/dL (9-16); Calcium 9.4 mg/dL (8.4-10.2); Carbon Dioxide 28 mmol/L (22-29); Chloride 107 mmol/L (96-108); Cholesterol 220 mg/dL (<200); Estimated Glomerular Filt Rate > 60; Glucose Fasting 102 mg/dL (60-99); HDL Cholesterol 73 mg/dL (>40); LDL Cholesterol Calculated 122 mg/dL (<100); Potassium 3.8 mmol/L (3.3-5.1); Sodium 141 mmol/L (135-145); Total Protein 7.1 g/dL (6.5-8.0); Triglycerides 128 mg/dL (<150)
[2024-02-13 08:50] LABS: Vitamin D 25-OH Total 48.3 ng/mL (>30)
== END 2024-02-13 07:09 | disposition home or self-care (01) ==
LOC: HO.LAB 07:08
PROVIDERS: PCP Internal Medicine; Visit Provider Internal Medicine
DX: E78.00 Pure hypercholesterolemia, unspecified (principal); M85.80 Other specified disorders of bone density and structure, unspecified site; L40.9 Psoriasis, unspecified
CPT/HCPCS: 36415; 80053; 80061; 82306; 85025

== ENCOUNTER 2024-03-02 07:29 | Outpatient (REF) | payer MEDICARE, SELFPAY ==
--- NOTE | ~2024-03-02 | MM_ITS ---
EXAMINATION: MM SCREENING DIGITAL BREAST TOMOSYNTHESIS, BILATERAL CLINICAL INFORMATION: Screening. Asymptomatic. COMPARISON: Mammography: Comparison is made with available priors TECHNIQUE: Digital breast mammography with tomosynthesis is performed in both the craniocaudal and mediolateral oblique views along with computer-aided detection (CAD). FINDINGS: The breasts are heterogeneously dense, which may obscure small masses (ACR BI-RADS breast composition Category c). There are no significant masses, abnormal calcifications, or other abnormalities. MM/MM tomosynthesis screening BI IMPRESSION: No mammographic evidence of malignancy. ASSESSMENT: BI-RADS BI-RADS 1 - Negative RECOMMENDATION: Routine annual mammography screening. 1 year F/U This examination should not preclude the clinical evaluation of a suspicious palpable abnormality. This patient's information was entered into a reminder system with a target due date for their next mammogram. Electronically signed by: Corie Carias DO 03/13/2024 08:47 AM [facility]
== END 2024-03-02 07:30 | disposition home or self-care (01) ==
LOC: HO.MAMMO 07:29
PROVIDERS: PCP Internal Medicine; Visit Provider Internal Medicine
DX: Z12.31 Encounter for screening mammogram for malignant neoplasm of breast (principal)
CPT/HCPCS: 77063; 77067

== ENCOUNTER → 2024-03-02 07:45 | Outpatient (BNV) | payer MEDICARE, SELFPAY | PROVIDERS: PCP Internal Medicine; Visit Provider Internal Medicine | DX: Z12.31 Encounter for screening mammogram for malignant neoplasm of breast (principal) | CPT/HCPCS: 77063; 77067 ==

== ENCOUNTER 2024-08-24 11:02 | Outpatient (AMB) | payer MEDICARE, SELFPAY ==
--- NOTE | 2024-08-24 11:06 | MHC.PC.OV ---
Vital Signs 08/24/24 11:10 Height 4 ft 11 in Weight 112 lb BMI 22.6 BP 122/80 Blood Pressure Location Lt brachial Position Sitting Pulse 70 Pulse Source Pulse Oximeter Temp 97.7 F Temp Source Axillary Pulse Oximetry (%) 98 Oxygen Delivery Method Room Air Intake Visit Reasons: Routine Health And Safety Specialist Required: No Accompanied by: Self / Same As Patient Allergies No Known Allergies Allergy (Unverified 08/24/24 11:06) Tobacco use date assessed: 08/24/24 Fall risk assessment: No Falls in past year Last assessed Fall Risk: 08/24/24 Dental Screening Dental Screen Date: 08/24/24 Did you have a dental visit in the last 12 months?: Yes Did you have a dental problem in the last 6 months where you did not have access to dental care?: No HPI HPI Comments History of Present Illness Details The patient is a 73 year old female with a past medical history of hyperlipidemia, osteopenia, psoriasis, OA-hand presenting for follow up. Last seen by pcp in february Hyperlipidemia-stable on statin. Colonoscopy 2021 Mammo-02/2024 ROS CONSTITUTIONAL: Denies weight loss, fever and chills. HEENT: Denies changes in vision and hearing. RESPIRATORY: Denies SOB and cough. CV: Denies palpitations and CP GI: Denies abdominal pain, nausea, vomiting and diarrhea. : Denies dysuria and urinary frequency. MSK: Denies new myalgia and joint pain. SKIN: Denies rash and pruritus. NEUROLOGICAL: Denies headache PSYCHIATRIC: Denies recent changes in mood. PHYSICAL EXAM: GENERAL: Alert and oriented x 3. NAD EYES: EOMI. Anicteric. HENT: Moist mucous membranes. No scleral icterus. No cervical lymphadenopathy. LUNGS: Clear to auscultation bilaterally. CARDIOVASCULAR: Regular rate and rhythm. No murmur. No JVD. ABDOMEN: Soft, non-tender +bs EXTREMITIES: No edema. Non-tender. SKIN: No rashes or lesions. Warm. NEUROLOGIC: No focal neurological deficits. CN II-XII grossly intact PSYCHIATRIC: Cooperative. Appropriate mood and affect [facility] Medical History COVID-19 vaccine series completed Arthritis Family history of anesthesia complication Postoperative nausea Elevated cholesterol Surgical History Hx of appendectomy History of H/O colonoscopy (~06/01/21) Family History Mother No problems noted. Father No problems noted. Social History Housing: House Are you a primary health care attorney to a significant other at home: No Do you presently have visiting nurse or other home services: No Patient Tobacco Use Status: Former Tobacco user Tobacco use type: Cigarette e-Cigarette/Vaping Use: Former Use service: No Current occupational status: retired Cognitive needs: No Hearing needs: No Vision needs: Yes (reading glasses) Questionnaire PHQ-9 Over the last 2 weeks, how often have you been bothered by any of the following problems? 1. Little interest or pleasure in doing things: not at all 2. Feeling down, depressed, or hopeless: not at all 3. Trouble falling or staying asleep, or sleeping too much: not at all 4. Feeling tired or having little energy: not at all 5. Poor appetite or overeating: not at all 6. Feeling bad about yourself - or that you are a failure or have let yourself or your family down: not at all 7. Trouble concentrating on things, such as reading the newspaper or watching television: not at all 8. Moving or speaking so slowly that other people could have noticed. Or the opposite - being so fidgety or restless that you have been moving around a lot more than usual: not at all 9. Thoughts that you would be better off or of hurting yourself in some way: not at all Total score: 0 Depression Screening Interpretation: Negative Depression Screening Done: Yes 45147 - PHQ-9 Billing: Yes Source: Developed by Drs. Star Butler, Brianna Tapia, Royal Ricci and colleagues, with an educational cata from [employer]. Thrive Questionnaire Date Thrive assessed: 08/24/24 I am a: Patient Within the past 12 months, did the food you bought not last and you didn't have the money to get more?: Never true Within the past 12 months, did you worry whether your food would run out before you got money to buy more?: Never true Do you have trouble paying for medicines?: No Do you have trouble getting transportation to medical appointments?: No Do you have trouble paying your heating and electricity bill?: No Do you have trouble taking care of your child, family member or friend?: No Do you have trouble with day-to-day activities such as bathing, preparing meals, shopping, managing finances, etc.?: No Are you currently unemployed and looking for a job?: No Are you interested in more education?: No THRIVE Score: 0 AUDIT C Alcohol Use Questionnaire (AUDIT-C) 1. How often do you have a drink containing alcohol?: Monthly or less 2. How many drinks containing alcohol do you have on a typical day when you are drinking?: 1 or 2 3. How often do you have six or more drinks on one occasion?: Less than monthly Total Score: 2 CORDELL-7 AMB Questionnaire CORDELL-7 Date CORDELL - 7 assessed: 08/24/24 Feeling nervous, anxious, or on edge: 0 = Not at all Not being able to stop or control worryin = Not at all Worrying too much about different things: 0 = Not at all Trouble relaxin = Not at all Being so restless that it is hard to sit still: 0 = Not at all Becoming easily annoyed or irritable: 0 = Not at all Feeling afraid as if something awful might happen: 0 = Not at all Total CORDELL-7 score (0-4 normal; 5-9 mild; 10-14 moderate; 15-21 severe): 0 Source: Developed by Drs. Star Butler, Brianna Tapia, Royal Ricci and colleagues, with an educational cata from [employer]. Physical exam (Primary Care) Vital Signs: Last Vital Signs Temp 97.7 F 08/24/24 11:10 Pulse 70 08/24/24 11:10 BP 122/80 08/24/24 11:10 Pulse Ox 98 08/24/24 11:10 Oxygen Delivery Method Room Air 08/24/24 11:10 BMI result Body Mass Index 22.6 Tobacco/Smoking Status: Tobacco use Status Tobacco use date assessed 08/24/24 08/24/24 11:08 Patient Tobacco Use Status Former Tobacco user 08/24/24 11:08 Tobacco use type Cigarette 08/24/24 11:08 e-Cigarette/Vaping Use Former Use 08/24/24 11:08 PHQ-9: PHQ-9 Score PHQ-9: Total score 0 08/24/24 11:24 Depression Screening Interpretation: Negative Thrive Assessment: Date of Thrive Assessment Date Thrive assessed 08/24/24 08/24/24 11:08 Coding Level of Care Code New Pt Level 4 (14094) Diagnoses Hyperlipidemia, unspecified hyperlipidemia type E78.5 Hyperlipidemia type: unspecified Arthritis M19.90 Additional Codes PHQ-9 - 11100 - PHQ-9 Billing: Yes ([id number]) Assessment & Plan Assessment & Plan (1) Hyperlipidemia: Code(s): E78.5 - Hyperlipidemia, unspecified Category: Medical Qualifiers: Hyperlipidemia type: unspecified Qualified Code(s): E78.5 - Hyperlipidemia, unspecified (2) Arthritis: Comment: in hands Code(s): M19.90 - Unspecified osteoarthritis, unspecified site Category: Medical Plan 73 year old to establish care past medical, surgical, social & family history reviewed HLD-stable on statin therapy Labs ordered for 6 month follow up Orders: Orders Lipid Panel 6 Months E78.5 - Hyperlipidemia, unspecified, M19.90 - Unspecified osteoarthritis, unspecified site, Z13.228 - Encounter for screening for other metabolic disorders Vitamin D 25-OH (D2 and D3) 6 Months E78.5 - Hyperlipidemia, unspecified, M19.90 - Unspecified osteoarthritis, unspecified site, Z13.228 - Encounter for screening for other metabolic disorders Complete Blood Count Auto Diff 6 Months E78.5 - Hyperlipidemia, unspecified, M19.90 - Unspecified osteoarthritis, unspecified site, Z13.228 - Encounter for screening for other metabolic disorders Comprehensive Met. Panel 6 Months E78.5 - Hyperlipidemia, unspecified, M19.90 - Unspecified osteoarthritis, unspecified site, Z13.228 - Encounter for screening for other metabolic disorders Medications: Changed From atorvastatin 1 tab PO DAILY To atorvastatin 20 mg PO DAILY 90 tabs 3RF
[2024-08-24 11:10] VITALS: BP 122/80; PULSE 70; TEMP 36.5; O2SAT 98; BMI 22.6
--- OUTSIDE RECORDS SUMMARY | 2024-08-24 12:08 | XMS_ITS | Patient Health Record ---
Author Organization [facility] Address [address] [place] [address] Care Team Providers Care Automatic Grinding Machine Operator Name Role Phone Lalo Lama MD Primary Care Provider Star Mccauley Unavailable [phone] Allergies No Known Allergies Reason For Referral No Information Medications Medication SIG (Take, Route, Frequency, Duration) Notes Start Date End Date Status Atorvastatin Calcium 20 MG TAKE 1 TABLET BY MOUTH ONCE A DAY Oral for 30 Active Immunizations Vaccine Route Administration Date Status Comme nts Influenza Unknown 03/09/2021 Administered Social History Tobacco Use: Social History Observation Description Date Details (start date - stop date) Former Smoker NA - NA Tobacco Use/Smoking Question Answer Notes Patient is a former smoker How long has it been since you last smoked? > 10 years Alcohol Screen Question Answer Notes Did you have a drink containing alcohol in the p ast year? No Points 0 Interpretation Negative Section Notes: Nonsmoker; no sig alcohol Problems Problem Type SNOMED Code ICD Code Onset Dates Problem Status W/U Status Risk Notes Problem 529801690 Encounter for screening for malignant neoplasm of colon (Z12.11) Active confirmed Problem 681938748885792 Preprocedural examination (Z01.818) Active confirmed Problem Diverticulosis of colon (130873809) Diverticulosis of colon (K57.30) Active confirmed Plan Of Treatment Future Test Test Name Order Date COLONOSCOPY 04/14/2021 Insurance Providers Payer Name Payer Address Payer Phone Subscriber Number Group Number Insured Name Patient Relationship to Insured Coverage Start Date Coverage End Date MEDICARE OF [place] [address] [place] [address] [id number] BRYAN JEFFERSON Self - patient is the insured [facility] [address] [place] [address] [id number] BRYAN JEFFERSON Self - patient is the insured Medical (General) History Medical History History ICD Code Denies [place],DM,CVA,Lung disease,renal dise ase Neg. screening colonoscopy in 09/2009 Hyperlipidemia Surgical History Surgery Date(Month/Year) Appendectomy 1
== END 2024-08-24 11:49 | disposition home or self-care (01) ==
LOC: HO.HMCHD 11:02
PROVIDERS: PCP Internal Medicine; Visit Provider Internal Medicine
DX: E78.5 Hyperlipidemia, unspecified (principal); M19.90 Unspecified osteoarthritis, unspecified site

== ENCOUNTER → 2024-08-24 11:02 | Outpatient (BNVA) | payer MEDICARE, SELFPAY | PROVIDERS: PCP Internal Medicine; Visit Provider Internal Medicine | DX: E78.5 Hyperlipidemia, unspecified (principal); M85.80 Other specified disorders of bone density and structure, unspecified site; M19.90 Unspecified osteoarthritis, unspecified site; L40.9 Psoriasis, unspecified | CPT/HCPCS: 96127; 99202 ==

== ENCOUNTER 2025-03-05 07:07 | Outpatient (REF) | payer MEDICARE, SELFPAY ==
--- OUTSIDE RECORDS SUMMARY | 2025-03-05 07:09 | XMS_ITS | Patient Health Record ---
Author Organization [facility] Address [address] [place] [address] Care Team Providers Care Concession Worker Name Role Phone Kelby (RETIRED) Lalo HURLEY Primary Care Provide r Unavailable Star Mcginnis Unavailable [phone] Allergies No Known Allergies Reason For Referral No Information Medications Medication SIG (Take, Route, Frequency, Duration) Notes Start Date End Date Status Atorvastatin Calcium 20 MG TAKE 1 TABLET BY MOUTH ONCE A DAY Oral; Duration: 30 Active Immunizations Vaccine Route Administration Date [...] Problem Status W/U Status Risk Notes Problem Screening for malignant neoplasm of colon (161266622) Encounter for screening for malignant neoplasm of colon (Z12.11) Active confirmed Problem Preprocedural examination (102980054135485) Preprocedural examination (Z01.818) Active confirmed Problem Diverticulosis of colon (340228314) Diverticulosis of colon (K57.30) Active confirmed Plan Of Treatment Future Test Test Name Order Date COLONOSCOPY 04/14/2021 Insurance Providers Payer Name Payer Address Payer Phone Subscriber Number Group Number Insured Name Patient Relationship to Insured Coverage Start Date Coverage End Date [place] OF [place] [address] [place] [address] [id number] BRYAN JEFFERSON Self - patient is the insured [facility] [address] [place] [address] [id number] RONNY BRYAN Self - patient is the insured Medical (General) History Medical History History ICD Code Denies [place],DM,CVA,Lung disease,renal dise ase Neg. screening colonoscopy in 09/2009 Hyperlipidemia Surgical History Surgery Date(Month/Year) Appendectomy 1
[2025-03-05 07:17] LABS: MANUAL DIFF FLAG NO
[2025-03-05 07:44] LABS: Hematocrit 41.8 % (37.0-47.0); Hemoglobin 13.9 g/dl (12.0-16.0); Imm Gran Abs Auto 0.02 X10*3/uL (0.00-0.03); Imm Gran Pct Auto 0.3 % (0.0-0.4); Lymphocytes Absolute Auto 2.4 X10*3/uL (1.2-4.9); Mean Corpuscular HGB Conc 33.3 g/dl (31.0-35.0); Mean Corpuscular Hemoglobin 29.3 pg (27.0-33.0); Mean Corpuscular Volume 88.0 fL (80.0-98.0); NRBC Abs Auto 0.000 X10*3/uL (0.0-0.012); NRBC Pct Auto 0.0 /100WBC (0.0-0.2); Platelet Count 384 X10*3/uL (160-400); Red Blood Count 4.75 X10*6/uL (4.20-5.50); White Blood Count 6.7 X10*3/uL (4.8-10.8)
[2025-03-05 08:13] LABS: Alanine Aminotransferase 24 U/L (0-31); Albumin Level 4.6 g/dL (3.5-5.0); Alkaline Phosphatase 70 U/L (39-117); Anion Gap 14 (12-20); Aspartate Amino Transferase 30 U/L (5-31); Blood Urea Nitrogen 12 mg/dL (9-16); Calcium 9.5 mg/dL (8.4-10.2); Carbon Dioxide 27 mmol/L (22-29); Chloride 106 mmol/L (96-108); Cholesterol 241 mg/dL (<200); Estimated Glomerular Filt Rate > 60; HDL Cholesterol 72 mg/dL (>40); Potassium 4.8 mmol/L (3.3-5.1); Sodium 142 mmol/L (135-145); Total Protein 7.6 g/dL (6.5-8.0); Triglycerides 141 mg/dL (<150)
[2025-03-09 12:52] LABS: Vitamin D 25-OH, D2 <4 ng/mL; Vitamin D 25-OH, D3 56 ng/mL; Vitamin D 25-OH, Total 56 ng/mL (30-100)
== END 2025-03-05 07:08 | disposition home or self-care (01) ==
LOC: HO.LAB 07:07
PROVIDERS: PCP Physician Assistant; Visit Provider Internal Medicine
DX: E78.5 Hyperlipidemia, unspecified (principal); M19.90 Unspecified osteoarthritis, unspecified site; Z13.228 Encounter for screening for other metabolic disorders
CPT/HCPCS: 36415; 80053; 80061; 82306; 85025

== ENCOUNTER 2025-03-08 14:05 | Outpatient (AMB) | payer MEDICARE, SELFPAY ==
--- NOTE | 2025-03-08 14:06 | A.OFFPC_ITS ---
Vital Signs 03/08/25 14:10 Height 4 ft 11 in Weight 52.163 kg BMI 23.2 BP 138/72 Blood Pressure Location Lt brachial Position Sitting Respiration 16 Pulse 76 Pulse Source Pulse Oximeter Temp 97.3 F Temp Source Temporal Artery Scan Pulse Oximetry (%) 97 Intake Visit Reasons: Follow Up History Department Chair Required: No Accompanied by: Self / Same As Patient Allergies No Known Allergies Allergy (Unverified 08/24/24 11:06) Medication List - Last Reconciled 03/08/25 by Lenore Suazo LPN ascorbate calcium (vitamin C) 500 mg PO DAILY atorvastatin 20 mg PO DAILY cholecalciferol (vitamin D3) 25 mcg PO DAILY Tobacco use date assessed: 08/24/24 Dental Screening Dental Screen Date: 08/24/24 HPI HPI Comments History of Present Illness Details The patient is a 73 year old female with a past medical history of hyperlipidemia, osteopenia, psoriasis, OA-hand presenting for follow up. Last seen in August Hyperlipidemia-LDL elevated at 141. On atorvastatin 20 mg daily Osteopenia-exercises regularly. Taking calcium and vitamin-D. Due for DEXA scan. Concerns: None Health maintenance: Colonoscopy 2021 Mammo-02/2024, scheduled for next week Due for DEXA scan ROS: General: No fevers, malaise, unintentional weight loss HEENT: No blurred vision, diplopia. No sore throat, nasal congestion, rhinorrhea, sinus pain, ear pain Cardiovascular: No chest pain, palpitations, or leg edema Respiratory: No shortness of breath, wheezing, cough GI: No abdominal pain, nausea, vomiting, diarrhea, constipation, melena, hematochezia : No dysuria, hematuria, increased urinary frequency, decreased urinary output MSK: No myalgia, back pain Neuro: No headaches, weakness, paresthesias Skin: No rashes or lesions EXAM: Constitutional - Awake and Alert, No apparent distress Eyes - PERRL Cardiovascular - S1S2, RRR, No edema Respiratory - Normal lung expansion, Normal respiratory effort, No respiratory distress, CTA bilaterally Extremities - no calf tenderness bilaterally, no swelling Skin - Warm/Dry Neurological - Alert & oriented x3 Psychological - Appropriate affect [facility] Medical History (Updated 03/08/25 @ 14:38 by SHAHZAD Patel) Bone pain Osteopenia COVID-19 vaccine series completed Arthritis Family history of anesthesia complication Postoperative nausea Elevated cholesterol Surgical History Hx of appendectomy History of H/O colonoscopy (~06/01/21) Family History Mother No problems noted. Father No problems noted. Social History Housing: House Are you a primary career specialist to a significant other at home: No Do you presently have visiting nurse or other home services: No Patient Tobacco Use Status: Former Tobacco user Tobacco use type: Cigarette e-Cigarette/Vaping Use: Former Use service: No Current occupational status: retired Cognitive needs: No Hearing needs: No Vision needs: Yes (reading glasses) Questionnaire Thrive Questionnaire Date Thrive assessed: 08/24/24 CORDELL-7 AMB Questionnaire CORDELL-7 Date CORDELL - 7 assessed: 08/24/24 Source: Developed by Drs. Star Butler, Brianna Tapia, Royal Ricci and colleagues, with an educational cata from [employer]. Physical exam (Primary Care) Vital Signs: Last Vital Signs Temp 97.3 F 03/08/25 14:10 Pulse 76 03/08/25 14:10 Resp 16 03/08/25 14:10 BP 138/72 03/08/25 14:10 Pulse Ox 97 03/08/25 14:10 BMI result Body Mass Index 23.2 Tobacco/Smoking Status: Tobacco use Status Tobacco use date assessed 08/24/24 03/08/25 14:07 Patient Tobacco Use Status Former Tobacco user 03/08/25 14:07 Tobacco use type Cigarette 03/08/25 14:07 e-Cigarette/Vaping Use Former Use 03/08/25 14:07 Thrive Assessment: Date of Thrive Assessment Date Thrive assessed 08/24/24 03/08/25 14:07 Coding Level of Care Code Est Pt Level 4 (72749) Diagnoses Hyperlipidemia, unspecified hyperlipidemia type E78.5 Hyperlipidemia type: unspecified Osteopenia M85.80 Assessment & Plan Assessment & Plan (1) Hyperlipidemia: Code(s): E78.5 - Hyperlipidemia, unspecified Category: Medical Qualifiers: Hyperlipidemia type: unspecified Qualified Code(s): E78.5 - Hyperlipidemia, unspecified Plan: Lipid panel ordered. Previously uncontrolled with LDL 144, goal less than 100. Increase atorvastatin 40 mg daily (2) Osteopenia: Code(s): M85.80 - Other specified disorders of bone density and structure, unspecified site Category: Medical Plan: DEXA scan ordered. Continue calcium and vitamin-D as well as weight-bearing exercise Plan Follow-up in the office for annual physical exam. Labs as ordered Orders: Orders Lipid Panel 6 Months E78.5 - Hyperlipidemia, unspecified Vitamin D 25-OH Total 6 Months E78.5 - Hyperlipidemia, unspecified Basic Metabolic Panel 6 Months E78.5 - Hyperlipidemia, unspecified XR DEXA axial skeleton Today M85.80 - Other specified disorders of bone density and structure, unspecified site, M89.8X9 - Other specified disorders of bone, unspecified site, N95.9 - Unspecified menopausal and perimenopausal disorder Medications: New atorvastatin (Lipitor) 40 mg PO DAILY 90 tabs 1RF Discontinued atorvastatin Discontinued Reason: Doctor's Order 20 mg PO DAILY 90 tabs 3RF
[2025-03-08 14:10] VITALS: BP 138/72; PULSE 76; RESP 16; TEMP 36.3; O2SAT 97; BMI 23.2
--- OUTSIDE RECORDS SUMMARY | 2025-03-08 14:53 | XMS_ITS | Patient Health Record ---
Author Organization [facility] Address [address] [place] [address] Care Team Providers Care Experimental Psychologist Name Role Phone Kelby (RETIRED) Lalo HURLEY Primary Care Provide r Unavailable Star Mcginnis Unavailable [phone] Allergies No Known Allergies Reason For Referral [...] Problem Screening for malignant neoplasm of colon (384983425) Encounter for screening for malignant neoplasm of colon (Z12.11) Active confirmed Problem Preprocedural examination (924663410091048) Preprocedural examination (Z01.818) Active confirmed Problem Diverticulosis of colon (123063980) Diverticulosis of colon (K57.30) Active confirmed Plan Of Treatment Future Test Test Name Order Date COLONOSCOPY 04/14/2021 Insurance Providers Payer Name Payer Address Payer Phone Subscriber Number Group Number Insured Name Patient Relationship to Insured Coverage Start Date Coverage End Date [place] [address] [facility] [place] [address] [id number] BRYAN JEFFERSON Self - patient is the insured [facility] [address] [place] [address] [phone] [id number] RONNY BRYAN Self - patient is the insured Medical (General) History Medical History History ICD Code Denies [place],DM,CVA,Lung disease,renal dise ase Neg. screening colonoscopy in 09/2009 Hyperlipidemia Surgical History Surgery Date(Month/Year) Appendectomy 1
== END 2025-03-08 14:43 | disposition home or self-care (01) ==
LOC: HO.HMCHD 14:05
PROVIDERS: PCP Internal Medicine; Visit Provider Physician Assistant
DX: E78.5 Hyperlipidemia, unspecified (principal); M85.80 Other specified disorders of bone density and structure, unspecified site

== ENCOUNTER → 2025-03-08 14:05 | Outpatient (BNVA) | payer MEDICARE, SELFPAY | PROVIDERS: PCP Internal Medicine; Visit Provider Physician Assistant | DX: M85.80 Other specified disorders of bone density and structure, unspecified site (principal); E78.5 Hyperlipidemia, unspecified; Z79.899 Other long term (current) drug therapy | CPT/HCPCS: 99212 ==

== ENCOUNTER 2025-03-12 07:29 | Outpatient (REF) | payer MEDICARE, SELFPAY ==
--- NOTE | ~2025-03-12 | MM_ITS ---
EXAMINATION: MM SCREENING DIGITAL BREAST TOMOSYNTHESIS, BILATERAL CLINICAL INFORMATION: Screening. Asymptomatic. COMPARISON: Comparison made to multiple prior, most recent March 02, 2024, and most remote November 24, 2017. TECHNIQUE: Digital breast tomosynthesis is performed in mediolateral oblique and craniocaudal views along with computer-aided detection (CAD). Synthesized 2D images are generated from the tomosynthesis. FINDINGS: BREAST COMPOSITION: The breasts are heterogeneously dense, which may obscure small masses. BILATERAL BREASTS: No significant masses, suspicious calcifications or other abnormalities are seen in either breast. MM/MM tomosynthesis screening BI IMPRESSION: BILATERAL BREASTS: Negative, no mammographic evidence of malignancy. Normal interval follow-up is recommended in 12 months. ASSESSMENT: BI-RADS: Category 1: Negative RECOMMENDATION: Routine annual mammography screening. FOLLOW-UP: 1 year F/U This examination should not preclude the clinical evaluation of a suspicious palpable abnormality. This patient's information was entered into a reminder system with a target due date for their next mammogram. Electronically signed by: Donaldo Dangelo MD 03/13/2025 06:55 PM [facility]
--- NOTE | ~2025-03-12 | MM_ITS ---
EXAMINATION: DXA BONE DENSITY AXIAL HISTORY: M85.80 - Other specified disorders of bone density and structure, unspec... TECHNIQUE: Greenstack Dual energy absorptiometry (DEXA) of the lumbar spine, total left hip, and femoral neck was performed. COMPARISON: Comparison is made with the prior examinations, most recent dated December 2019. FINDINGS: The bone mineral density of the lumbar spine (L1-L3) is 0.848 g/cm2, corresponding to a T-score of -2.7, and a Z-score of -0.5. This is indicative of osteoporosis. This represents a BMD change of -7.9% compared to the prior exam. The bone mineral density of the left total hip is 0.874 g/cm2, corresponding to a T-score of -1.1, and a Z-score of 0.9. This is indicative of osteopenia. This represents a BMD change of -14.1% compared to the prior exam. The bone mineral density of the left femoral neck is 0.825 g/cm2, corresponding to a T-score of -1.5, and a Z-score of 0.6. This is indicative of osteopenia. This represents a BMD change of -10.5% compared to the prior exam. FRACTURE RISK: High. MM/XR DEXA axial skeleton IMPRESSION: Based on bone mineral density, and according to World Health Organization (WHO) criteria, the diagnosis is consistent with osteoporosis based on lowest T score of -2.7 in the spine. Bone mineral density significantly decreased compared to most recent exam December 2019. RECOMMENDATIONS: 1. Treatment Recommendations: NOF guidelines recommend consideration for treatment in postmenopausal women and men age 50 and older presenting with the following: -A hip or vertebral (clinical or morphometric) fracture. -T-score less than or equal to -2.5 at the femoral neck or spine after appropriate evaluation to exclude secondary causes. -Low bone mass at the hip or spine and a 10-year fracture probability by FRAX of greater than or equal to 3% for hip fracture or greater than or equal to 20% for major osteoporotic fracture based on the [place] adapted WHO algorithm. 2. Other Recommendations: All treatment decisions require clinical judgment and consideration of individual patient factors, including patient preferences, comorbidities, previous drug use, risk factors not captured in the FRAX model (e.g. frailty, falls, vitamin D deficiency, increased bone turnover, interval significant decline in bone density) and possible under or overestimation of fracture risk by FRAX. 3. Future Scan Recommendation: People with diagnosed cases of osteoporosis or at high risk for fracture should have regular bone mineral density tests. For patients eligible for Medicare, routine testing is allowed once every 2 years. The testing frequency can be increased to one year for patients who have rapidly progressing disease, those who are receiving or discontinuing medical therapy to restore bone mass, or have additional risk factors. Statistically, 68% of repeat scans fall within 1 SD (+/- 0.010 g/cm2 for AP spine L1-L4) and 1 SD (+/- 0.012 g/cm2 for femur total) FRAX is a trademark of the [employer]'s [employer] Metabolic Bone Disease, a World Health Organization (WHO) Collaborating Center. Electronically signed by: Lisa Sosa MD 03/12/2025 01:57 PM SHERRY
--- OUTSIDE RECORDS SUMMARY | 2025-03-12 07:31 | XMS_ITS | Patient Health Record ---
Author Organization [facility] Address [address] [place] [address] Care Team Providers Care Delivery Analyst Name Role Phone Kelby (RETIRED) Lalo HURLEY Primary Care Provide r Unavailable Star Mcginnis Unavailable [phone] Allergies No Known Allergies Reason For Referral [...] Problem Screening for malignant neoplasm of colon (749342730) Encounter for screening for malignant neoplasm of colon (Z12.11) Active confirmed Problem Preprocedural examination (125117017300371) Preprocedural examination (Z01.818) Active confirmed Problem Diverticulosis of colon (897913185) Diverticulosis of colon (K57.30) Active confirmed Plan Of Treatment Future Test Test Name Order Date COLONOSCOPY 04/14/2021 Insurance Providers Payer Name Payer Address Payer Phone Subscriber Number Group Number Insured Name Patient Relationship to Insured Coverage Start Date Coverage End Date [place] [address] [place] [address] [id number] BRYAN JEFFERSON Self - patient is the insured [facility] [address] [place] [address] [phone] [id number] RONNY BRYAN Self - patient is the insured Medical (General) History Medical History History ICD Code Denies [place],DM,CVA,Lung disease,renal dise ase Neg. screening colonoscopy in 09/2009 Hyperlipidemia Surgical History Surgery Date(Month/Year) Appendectomy 1
== END 2025-03-12 07:30 | disposition home or self-care (01) ==
LOC: HO.MAMMO 07:29
PROVIDERS: PCP Physician Assistant; Visit Provider Physician Assistant
DX: Z12.31 Encounter for screening mammogram for malignant neoplasm of breast (principal); Z78.0 Asymptomatic menopausal state; M81.0 Age-related osteoporosis without current pathological fracture; M85.89 Other specified disorders of bone density and structure, multiple sites
CPT/HCPCS: 77063; 77067; 77080

== ENCOUNTER → 2025-03-12 13:30 | Outpatient (BNV) | payer MEDICARE, SELFPAY | PROVIDERS: PCP Physician Assistant; Visit Provider Radiology Diagnostic Radiology | DX: Z12.31 Encounter for screening mammogram for malignant neoplasm of breast (principal) | CPT/HCPCS: 77063; 77067; 77080 ==

== ENCOUNTER 2025-05-07 07:56 | Outpatient (AMB) | payer MEDICARE, SELFPAY ==
[2025-05-07 08:06] VITALS: BP 128/72; PULSE 95; O2SAT 98; BMI 23.0
--- NOTE | 2025-05-07 08:06 | A.OFFVIS_ITS ---
Vital Signs 05/07/25 08:06 Height 4 ft 11.25 in Weight 115 lb 1.301 oz BMI 23.0 BP 128/72 Blood Pressure Location Lt brachial Position Sitting Pulse 95 Pulse Source Pulse Oximeter Pulse Oximetry (%) 98 Oxygen Delivery Method Room Air Intake Visit Reasons: Osteoporosis Intake Note: New patient internally referred by PCP for Osteoporosis. Co Founder And President Required: No Accompanied by: Self / Same As Patient Allergies No Known Allergies Allergy (Verified 05/07/25 08:07) Medication List - Last Reconciled 05/07/25 by Star Mackenzie MD ascorbate calcium (vitamin C) 500 mg PO DAILY atorvastatin (Lipitor) 40 mg PO DAILY calcium mg PO cholecalciferol (vitamin D3) 25 mcg PO DAILY HPI Comments Details: History of Present Illness The patient is a 74 year old female presenting for evaluation of osteoporosis. She was diagnosed with osteoporosis approximately 10 years ago and was started on Fosamax, which she took for about one year. She discontinued the medication due to her dentist's concerns about jaw locking, which she experiences occasionally. She denies any history of hip, spine, or forearm fractures but reports a past finger fracture from a fall. She has experienced approximately one inch of height loss. Her most recent bone densitometry showed a T-score of -2.7 in the spine and -1.1 in the hip, with reported bone density decreases of 7.9% in the spine and 14% in the hip since the previous scan. Regarding her medical history, menarche was at age 13 and menopause occurred around age 50. She has a history of psoriasis, which was treated with topical creams and ointments, but denies any history of oral steroid use. She uses proton pump inhibitors on occasion for acid reflux. She is up-to-date on dental cleanings and has upcoming dental work for a crown. Family history is negative for osteoporosis, hip fractures, and kidney stones. She quit smoking 18-19 years ago and denies alcohol use. Medication History - Fosamax: The patient took this for approximately one year about 10 years ago for osteoporosis but discontinued it due to concerns about jaw locking. Medications - Calcium 500 mg gummy: Taken inconsistently. - Vitamin D ~500 IU: Taken daily. - Proton pump inhibitor: Taken as needed for acid reflux. Exercise The patient reports walking frequently with her as her main form of exercise. She also does some weight-bearing exercises at home with weights and bands, though inconsistently, about once or twice a week. Diet History The patient's diet includes broccoli, cottage cheese, and yogurt. She does not drink much milk. She takes a 500 mg calcium supplement inconsistently. Results - Bone Densitometry: Lowest T-score of -2.7 in the spine. Hip T-score of -1.1. Compared to the prior scan, bone density has decreased by 7.9% in the spine and 14% in the hip. [facility] Medical History (Updated 03/12/25 @ 16:41 by SHAHZAD Patel) Osteoporosis BON (bisphosphonate-associated osteonecrosis), oral, jaw Bone pain COVID-19 vaccine series completed Arthritis Family history of anesthesia complication Postoperative nausea Elevated cholesterol Surgical History Hx of cataract surgery Hx of appendectomy History of H/O colonoscopy (~06/01/21) Family History Mother No problems noted. Father No problems noted. Social History Housing: House Are you a primary home health care provider to a significant other at home: No Do you presently have visiting nurse or other home services: No Patient Tobacco Use Status: Former Tobacco user Tobacco use type: Cigarette e-Cigarette/Vaping Use: Former Use service: No Current occupational status: retired Cognitive needs: No Hearing needs: No Vision needs: Yes (reading glasses) Review of Systems Narrative Review of Systems - Constitutional: Reports loss of height. Denies current hot flashes. - Musculoskeletal: Reports occasional jaw locking. Denies history of hip, spine, or forearm fractures. - Neurological: Denies seizures. - Gastrointestinal: Reports occasional acid reflux. - Genitourinary: Denies history of kidney stones. Physical Exam Exam Exam: Physical Exam - General: Appears well and younger than stated age, not frail. - Neck: Thyroid palpated without noted abnormality. - Back: No spinous process tenderness on palpation. - Lungs: Clear to auscultation bilaterally. Absence of Cushingoid features. Absence of acromegalic features. Neck exam reveals nl size thyroid about 15 gms. No thyroid nodules palpable. Heart S1 S2, Reg R/R. No M/R G. Skin exam reveals absence of vitiligo or acanthosis nigricans. Visual exam of foot performed. No ulcerations or open lesions. No inter digit maceration or fissuring. No onychomycosis, no callouses. Sensation intact to monofilament exam. Vibratory sensation is normal with 128 Hz tuning fork. Vital Signs: Last Vital Signs Pulse 95 05/07/25 08:06 BP 128/72 05/07/25 08:06 Pulse Ox 98 05/07/25 08:06 Oxygen Delivery Method Room Air 05/07/25 08:06 BMI result Body Mass Index 23.0 There are no Cushingoid features. Absence of blue sclera. Absence of kyphosis. Thyroid gland is of nl size and weighs 15 gms. There are no thyroid nodules palpated. Lungs CTA. Heart S1 S2 Reg R/R Abdominal exam benign. Muscle strength 5/5 . Examination of spine reveals absence of tenderness on palpation Assessment & Plan Assessment & Plan (1) Osteoporosis: Code(s): M81.0 - Age-related osteoporosis without current pathological fracture Category: Medical Plan: This is a 74-year-old white female with a history of osteoporosis with partial secondary workup Plan is to complete the secondary workup by checking a TSH, free T4, phosphorus level, urine immunofixation, 24 hour urine for calcium and creatinine. Will ensure 1200 mg of calcium continued vitamin-D supplementation. Assuming secondary workup was negative could consider the use of an anti resorptive agent like an oral or intravenous bisphosphonate. Plan Assessment and Plan 1. Osteoporosis The patient is a 74-year-old female with a diagnosis of osteoporosis based on a T-score of -2.7 in her lumbar spine. Her risk factors include her age, postmenopausal status, race, and a history of smoking. She has shown a decline in bone density since her last scan, though the accuracy of the scan is noted to be questionable. She has no history of fragility fractures. Obtain labs for secondary workup, including thyroid levels and screening for m ultiple myeloma. Patient will complete a 24-hour urine collection for calcium to assess absorption and rule out hypercalciuria. University Relations Director on increasing total calcium intake to 1200 mg/day with food and supplementation, recommending calcium citrate. Continue vitamin D supplementation. Encourage consistent weight-bearing exercise and fall prevention strategies. After the workup is complete, we will discuss pharmacologic treatment options, including the potential to restart alendronate (Fosamax) once her planned dental work is completed. Other options such as Reclast and Prolia were discussed but are not the primary recommendation at this time. Anabolic agents are not indicated. Follow up in 3-4 months to review the workup results and make a shared decision regarding treatment. The patient had an opportunity to ask questions regarding treatment plan. The patient expressed understanding and agreement with the above treatment plan. Patient was informed and verbally consented to the use of an ambient scribe for clinic note documentation during this visit. Discussion Notes I had a detailed discussion with the patient regarding her diagnosis of osteoporosis. I explained that her T-score of -2.7 meets the criteria for osteoporosis and that this is considered a preventative health issue aimed at reducing future fracture risk. I educated her on the pathophysiology of bone loss after menopause, her personal risk factors, and the potential inaccuracies of bone density scans. I outlined the plan to conduct a secondary workup with blood tests and a 24-hour urine collection to rule out other contributing factors. We reviewed non- pharmacological management, including ensuring adequate calcium intake of 1200 mg daily, continuing vitamin D, the importance of weight-bearing exercise, and fall prevention. We discussed future treatment options to be considered after the workup is complete. I presented two main paths: deferring medication while focusing on lifestyle changes with a repeat bone density scan in two years, or starting pharmacologic therapy. If medication is chosen, restarting the oral pill alendronate (Fosamax) would be a reasonable option, given her prior tolerance and its efficacy. We briefly covered other options like an annual infusion (Reclast) and a semi-annual injection (Prolia), but agreed these were not necessary at this time. I emphasized the importance of completing her planned dental work before initiating any antiresorptive therapy. The patient understood the plan and will return for follow-up in 3-4 months to review results and make a shared decision. Patient Instructions - Complete the ordered lab work, which includes blood tests and a 24-hour urine collection. You can cotton picker the collection jug at the lab on this floor. - Schedule a follow-up appointment in about 4 months to discuss your test results. - Aim to get a total of 1200 mg of calcium each day from your diet and supplements. Calcium citrate is a good option if you need a supplement. - Continue taking your vitamin D supplement. - Continue with weight-bearing exercises like walking, and consider using light weights or resistance bands. You may want to look into a Better Bones and Balance class. - Take steps to prevent falls, such as making sure your home is well-lit and removing tripping hazards like loose rugs. - Complete your upcoming dental work before we decide on starting any new medication for your bones. - The blood tests do not require you to fast. Orders: Orders Free T4 (Free Thyroxine) Today M81.0 - Age-related osteoporosis without current pathological fracture Immunofixation, Random Urine Today M81.0 - Age-related osteoporosis without current pathological fracture Phosphorus Today M81.0 - Age-related osteoporosis without current pathological fracture Thyroid Stimulating Hormone Today M81.0 - Age-related osteoporosis without current pathological fracture Calcium, 24 Hr Ur Today M81.0 - Age-related osteoporosis without current pathological fracture Creatinine, 24 Hr Group Today M81.0 - Age-related osteoporosis without current pathological fracture Coding Level of Care Code New Pt Level 4 (74763) Add On Problem Visit Only Diagnoses Osteoporosis M81.0
--- OUTSIDE RECORDS SUMMARY | 2025-05-07 09:18 | XMS_ITS | Patient Health Record ---
Author Organization [facility] Address [address] [place] [address] Care Team Providers Care Molder Sweep Name Role Phone Kelby (RETIRED) Lalo HURLEY Primary Care Provide r Unavailable Star Mcginnis Unavailable [phone] Allergies No Known Allergies Reason For Referral No Information Medications Medication SIG (Take, Route, Frequency, Duration) Notes Start Date End Date Status Atorvastatin Calcium 20 MG Tablet TAKE 1 TABLET BY MOUTH ONCE A DAY Oral; Duration: 30 Active Immunizations Vaccine Route Administration Date Status Comme nts Influenza Unknown 03/09/2021 Administered Social History Tobacco Use: Social History Observation Description Date Details (start date - stop date) Former Smoker NA - NA Social History Drugs/Alcohol: Social Info Question Answer Notes Alcohol Screen Did you have a drink containing alcohol in the past year? No Points 0 Interpretation Negative Tobacco Use: Social Info Question Answer Notes Tobacco Use/Smoking Patient is a former smoker How long has it been since you last smoked? > 10 years Additional Details Category Social Info Options Details Miscellaneous: Marital status: Occupation: retired Section Notes: Nonsmoker; no sig alcohol Problems Problem Type SNOMED Code ICD Code Onset Dates Problem Status W/U Status Risk Notes Problem Screening for malignant neoplasm of colon (058724139) Encounter for screening for malignant neoplasm of colon (Z12.11) Active confirmed Problem Preprocedural examination (627172588853914) Preprocedural examination (Z01.818) Active confirmed Problem Diverticulosis of colon (326770020) Diverticulosis of colon (K57.30) Active confirmed Plan Of Treatment Future Test Test Name Order Date COLONOSCOPY 04/14/2021 Insurance Providers Payer Name Payer Address Payer Phone Subscriber Number Group Number Insured Name Patient Relationship to Insured Coverage Start Date Coverage End Date [employer] [place] [address] [place] [address] [id number] BRYAN JEFFERSON Self - patient is the insured [employer] [address] [place] [address] [id number] BRYAN JEFFERSON Self - patient is the insured Medical (General) History Medical History History ICD Code Denies NE,DM,CVA,Lung disease,renal dise ase Neg. screening colonoscopy in 09/2009 Hyperlipidemia Surgical History Surgery Date(Month/Year) Appendectomy 1
== END 2025-05-07 08:42 | disposition home or self-care (01) ==
LOC: HO.ENCR 07:56
PROVIDERS: PCP Physician Assistant; Visit Provider Internal Medicine Endocrinology, Diabetes & Metabolism
DX: M81.0 Age-related osteoporosis without current pathological fracture (principal)
CPT/HCPCS: 99204; G2211

== ENCOUNTER → 2025-05-07 07:56 | Outpatient (BNVA) | payer MEDICARE, SELFPAY | PROVIDERS: PCP Physician Assistant; Visit Provider Internal Medicine Endocrinology, Diabetes & Metabolism | DX: M81.0 Age-related osteoporosis without current pathological fracture (principal); Z79.899 Other long term (current) drug therapy | CPT/HCPCS: 99202 ==